=== PATIENT | female | born 1985 | race Caucasian/White ===

== ENCOUNTER → 2019-11-27 | Outpatient (CLI) | payer OTHER ==
--- NOTE | 2019-11-27 13:43 | REP ---
Clinical: Limited examination performed for cervical length. Comparison: None . Findings: Examination demonstrates a single live intrauterine in transverse (head to maternal left) presentation. motion is identified by technologist. Placenta is noted left lateral and grade zero without evidence for placenta previa or abruption. Amniotic fluid volume is normal. Cervix measures 3.5 cm on transabdominal imaging. Gestational age by LMP 25 weeks 5 days with KELLIE 03[birth year]16[birth year]2020 . FHR equals 161 beats per minute. Impression: Transabdominal images demonstrate cervix to measure 3.5 cm in length and appears closed.
== END ==
LOC: M WHC 12:18
PROVIDERS: ATTEND Obstetrics & Gynecology
DX: Z34.82 Encounter for supervision of other normal pregnancy, second trimester (principal); Z3A.22 22 weeks gestation of pregnancy